=== PATIENT | female | born 1975 | race Caucasian/White ===

== ENCOUNTER 2019-12-05 16:34 | Emergency (ER) | payer OTHER ==
--- OUTSIDE RECORDS SUMMARY | 2019-12-05 16:46 | XMS REPORT | Continuity of Care Document ---
:1975 External Reference #:[id number] Author Name Ada Hamlin MD Address [address] [place] [address] Care Team Providers Name Role Phone Jonas Corona MD - Urology Care Team Information Honing Machine [employer] [phone] Problems Active Problems Provider Date Vitamin D deficiency Ada Hamlin MD Onset: 08/17/2013 Allergic rhinitis Arlet Richards PA Onset: 06/18/2011 Kidney stone Ada Hamlin MD Onset: 12/10/2018 Localized, primary osteoarthritis of the Ada Hamlin MD Onset: 2018 ankle and/or foot Migraine without aura, not refractory Ada Hamlin MD Onset: 12/10/2018 Social History Type Date Description Comments Sex Unknown Tobacco Use Start: Unknown Never Smoked Cigarettes ETOH Use Occasionally consumes alcohol Recreational Drug Use Denies Drug Use Tobacco Use Start: Unknown Patient has never smoked Smoking Status Reviewed: 12/10/18 Patient has never smoked Exercise Type/Frequency Exercises regularly Exercises regularly, walking, running (5k to 1/2 mar). 01/13/2014 counselled 150min per week, 10k steps per day ; 10/19/15 counselled; 11/28/16 counselled [facility]; 12/05/17 counselled [facility] Allergies, Adverse Reactions, Alerts Active Allergies Reaction Severity Comments Date Penicillin Hives 12/31/2014 Medications Active Medications SIG Qnty Indications Ordering Date Provider Fluticasone 1 inhalation twice 3units J45.40 Boubacar, 07/30/2019 Propionate/Salmetero daily, rinse mouth MD Ada l after use 55-14mcg/Act Aerosol Albuterol Sulfate 2 puffs every 4 8.500gm R06.02 Deepa Avalos, 2018 HFA hours as needed 108(90Base) mcg/Act Aerosol J45.40 Ibuprofen 200 4 by mouth po 3 M25.511 Ada Hamlin MD 05/28/2019 200mg times daily with Tablets food watch for stomach upset. Fluticasone 2 sprays to each 16gm J30.9 Ada Hamlin MD 12/10/2018 Propionate nostril daily 50mcg/Act Suspension Sumatriptan Succinate 1 by mouth with 30tabs G43.019 Ada Hamlin MD 12/05/2017 headache onset, 25mg Tablets may repeat every 2 hours up to 200mg total daily dose G43.009 Vitamin D (Cholecalciferol) 2 po daily with E55.9 Ada Hamlin MD 1000Unit main meal with Tablets meat fat oil Fish Oil 1 by mouth every Unknown 1000mg Capsules day Glucosamine Chondroitin 1500 1 tab PO every Unknown Complex day as needed 1500Com Capsules Zyrtec Allergy 1 by mouth every Unknown 10mg Tablets day History Medications Fluticasone 1 inhalations 1units J45.40 Boubacar, 07/28/2019 - Propionate/Salmeterol twice daily MD Ada 07/30/2019 113-14mcg/Act Aerosol Medications Administered in Office Medication SIG Qnty Indications Ordering Provider Date Torodol Injection 15 MG Dose Ada Hamlin MD 04/27/2016 Injection Immunizations CPT Code Status Date Vaccine Reaction Lot # [id number] Given 09/10/2019 Influenza Vac, Quadrivalent, Split, 0.25mL, Im Use 66462 Given 09/03/2019 Pneumococcal 23 Immunization Adult [id number] Or Immunosuppressed Patient Q2036 Given 08/14/2017 Flulaval Immunization [facility] 14578 Given 07/22/2017 Influenza Virus Vaccine,Quadrivalent,Split,Preserv Free, 0.5mL,Im [address] Given 07/23/2016 Influenza Virus Vaccine,Quadrivalent,Split,Preserv Free, 0.5mL,Im [address]896 Given 07/21/2015 Influenza Virus Vaccine,Quadrivalent,Split,Preserv Free, 0.5mL,Im 71910 Given 08/06/2014 Influenza Virus Vaccine,Quadrivalent,Split,Preserv Free, 0.5mL,Im 73879 Given 08/04/2013 Afluria Or Fluvirin Flu Vac Intramuscular 85865 Given 01/21/2012 Tdap (Adacel) Ages 7 And Above Only 04897 Given 10/15/2006 Afluria Or Fluvirin Flu Vac Intramuscular 19598 Given 10/15/2006 Afluria Or Fluvirin Flu Vac Intramuscular 02728 Refused 09/03/2019 Fluzone Highdose Age 65 And Over will get at pharmacy Preservative & Antibiotic Free Q2039 Refused 06/16/2019 Flu Vaccine NOS WILL GET IN FALL Q2039 Refused 07/02/2018 Flu Vaccine NOS Vital Signs Date Vital Result Comment 11/12/2019 10:25am Weight 178.00 lb Heart Rate 72 /min BP Systolic 116 mmHg BP Diastolic 80 mmHg Respiratory Rate 16 /min Height 65.5 inches 5'5.50" BMI (Body Mass Index) 29.2 kg/m2 09/03/2019 11:37am Weight 179.00 lb Heart Rate 61 /min BP Systolic 118 mmHg BP Diastolic 70 mmHg Respiratory Rate 16 /min Height 65.5 inches 5'5.50" O2 % BldC Oximetry 99 % ra BMI (Body Mass Index) 29.3 kg/m2 Results Test Acquired Date Facility Test Result H/L Range Note Laboratory test 06/16/2019 [facility] Microbiology res 1 finding Culture <SEE NOTE> 1 Microbiology results RESULT Normal throat curly.No beta hemolytic streptococci isolated. Procedures Date Code Description Status 11/12/2019 85687 Remove Skin Tags Up To 15 Completed 09/03/2019 71303 Measure Blood Oxygen Level Single Determination Completed 09/03/2019 77436 Spirometry /PFT With And Without Bronchodialator Completed (Bronchospasm) 07/31/2019 35828 Measure Blood Oxygen Level Single Determination Completed 07/28/2019 50409 Measure Blood Oxygen Level Single Determination Completed 07/28/2019 04419 Spirometry /PFT With And Without Bronchodialator Completed (Bronchospasm) 07/18/2019 00659 Measure Blood Oxygen Level Single Determination Completed 06/16/2019 98837 Measure Blood Oxygen Level Single Determination Completed 02/24/2018 89410550 Mammogram Completed Medical Devices Description No Information Available Encounters Type Date Location Provider Dx Diagnosis Office Visit 09/03/2019 [facility] Ada Hamlin, J45.20 Mild intermittent 11:15a asthma, uncomplicated Z23 Encounter for immunization Z68.29 Body mass index (BMI) 29.0-29.9, adult Office Visit 07/31/2019 3:45p [facility] Ada Hamlin MD J06.9 Acute upper respiratory infection, unspecified J45.20 Mild intermittent asthma, uncomplicated Z68.29 Body mass index (BMI) 29.0-29.9, adult Office Visit 07/28/2019 4:15p [facility] Ada Hamlin MD R06.02 Shortness of breath J45.20 Mild intermittent asthma, uncomplicated Z68.29 Body mass index (BMI) 29.0-29.9, adult Office Visit 07/18/2019 10:15a [facility] Deepa Avalos MD R06.02 Shortness of breath Z68.28 Body mass index (BMI) 28.0-28.9, adult Office Visit 06/16/2019 1:45p [facility] Ada Hamlin MD J06.9 Acute upper respiratory infection, unspecified Z68.29 Body mass index (BMI) 29.0-29.9, adult Office Visit 05/28/2019 11:30a [facility] Ada Hamlin MD M25.511 Pain in RIGHT shoulder M54.2 Cervicalgia G43.009 Migraine w/o aura, not intractable, w/o status migrainosus Z68.29 Body mass index (BMI) 29.0-29.9, adult Assessments Date Code Description Provider 11/12/2019 J45.40 Moderate persistent asthma, uncomplicated Ada Hamlin MD 11/12/2019 L91.8 Other hypertrophic disorders of the skin Ada Hamlin MD 11/12/2019 Z68.29 Body mass index (BMI) 29.0-29.9, adult Ada Hamlin MD 09/03/2019 J45.20 Mild intermittent asthma, uncomplicated Ada Hamlin MD 09/03/2019 Z23 Encounter for immunization Ada Hamlin MD 09/03/2019 Z68.29 Body mass index (BMI) 29.0-29.9, adult Ada Hamlin MD 07/31/2019 J06.9 Acute upper respiratory infection, Ada Hamlin MD unspecified 07/31/2019 J45.20 Mild intermittent asthma, uncomplicated Ada Hamlin MD 07/31/2019 Z68.29 Body mass index (BMI) 29.0-29.9, adult Ada Hamlin MD 07/28/2019 R06.02 Shortness of breath Ada Hamlin MD 07/28/2019 J45.20 Mild intermittent asthma, uncomplicated Ada Hamlin MD 07/28/2019 Z68.29 Body mass index (BMI) 29.0-29.9, adult Ada Hamlin MD 07/18/2019 R06.02 Shortness of breath Deepa Avalos MD 07/18/2019 Z68.28 Body mass index (BMI) 28.0-28.9, adult Deepa Avalos MD 06/16/2019 J06.9 Acute upper respiratory infection, Ada Hamlin MD unspecified 06/16/2019 Z68.29 Body mass index (BMI) 29.0-29.9, adult Ada Hamlin MD 06/16/2019 J06.9 Acute upper respiratory infection, [facility] unspecified 05/28/2019 M25.511 Pain in RIGHT shoulder Ada Hamlin MD 05/28/2019 M54.2 Cervicalgia Ada Hamlin MD 05/28/2019 G43.009 Migraine without aura, not intractable, Ada Hamlin MD without status migra 05/28/2019 Z68.29 Body mass index (BMI) 29.0-29.9, adult Ada Hamlin MD Plan of Treatment Future Appointment(s):12/24/2019 8:30 am - Ada Hamlin MD at [facility]2019 - Ada Hamlin MDJ45.40 Moderate persistent asthma, nodyzedjcyrsmB23.8 Other hypertrophic disorders of the skinZ68.29 Body mass index (BMI) 29.0-29.9, adultComments:Recommend regular exercise and reduced calorie diet for weight loss Cautioned risks for developing sleep apnea, arthritis, hypertension, premature cardiovascular disease, diabetes. Functional Status Description No Information Available Mental Status Description No Information Available Referrals Description No Information Available
[2019-12-05 16:56] VITALS: BP 111/67
--- NOTE | 2019-12-05 17:14 | UC ---
Throat Pain/Nasal Kojo HPI - HPI Summary HPI Summary: Pt presents with c/o sudden onset fever, chills, body aches, ST. X 1 day. Pt's was diagnosed with strep throat yesterday. - History of Current Complaint Chief Complaint: UCGeneralIllness Stated Complaint: SORE THROAT Time Seen by Provider: 12/05/19 16:55 Hx Obtained From: Patient Hx Last Menstrual Period: 12/05/19 ?: No Onset/Duration: Sudden Onset, Lasting Hours, Still Present Severity: Moderate Pain Intensity: 4 Cough: None Associated Signs & Symptoms: Positive: Dysphagia - Epiglottits Risk Factors Epiglottis Risk Factors: Sudden Onset - Allergies/Home Medications Allergies/Adverse Reactions: Allergies Allergy/AdvReac Type Severity Reaction Status Date / Time Penicillins Allergy Hives Verified 12/05/19 16:56 Home Medications: Home Medications Fluticasone-Salmeterol 100-50* [Advair Diskus 100-50*] 1 puff INH BID 12/05/19 [ History Confirmed 12/05/19] PMH/Surg Hx/FS Hx/Imm Hx Previously Healthy: Yes - Surgical History Surgical History: None - Family History Known Family History: Positive: Cardiac Disease - Social History Occupation: Employed Full-time Lives: With Family Alcohol Use: None Substance Use Type: None Smoking Status (MU): Never Smoked Tobacco Have You Smoked in the Last Year: No Review of Systems All Other Systems Reviewed And Are Negative: Yes Constitutional: Positive: Fever, Chills, Fatigue Skin: Positive: Negative Eyes: Positive: Negative ENT: Positive: Sore Throat Respiratory: Positive: Negative Cardiovascular: Positive: Negative Gastrointestinal: Positive: Negative Genitourinary: Positive: Negative Motor: Positive: Negative Neurovascular: Positive: Negative Musculoskeletal: Positive: Myalgia Neurological/Mental Status: Positive: Negative Psychological: Positive: Negative Is Patient Immunocompromised?: No Physical Exam Triage Information Reviewed: Yes Appearance: Ill-Appearing Vital Signs: Initial Vital Signs Temp 99.6 F 12/05/19 16:51 Pulse 59 12/05/19 16:51 Resp 14 12/05/19 16:51 BP 111/67 12/05/19 16:51 Pulse Ox 98 12/05/19 16:51 Vital Signs Reviewed: Yes Eye Exam: Normal ENT: Positive: Pharyngeal erythema, Tonsillar swelling Dental Exam: Normal Neck exam: Normal Respiratory Exam: Normal Cardiovascular Exam: Normal Musculoskeletal Exam: Normal Neurological Exam: Normal Psychological Exam: Normal Skin Exam: Normal Throat Pain/Nasal Course/Dx - Differential Dx/Diagnosis Differential Diagnosis/HQI/PQRI: Influenza, Pharyngitis, Tonsillitis Provider Diagnosis: Tonsillitis Discharge ED - Sign-Out/Discharge Documenting (check all that apply): Patient Departure All imaging exams completed and their final reports reviewed: No Studies - Discharge Plan Condition: Stable Disposition: HOME Prescriptions: Azithromycin TAB* [Zithromax TAB (Z-ALEJANDRO) 250 mg #6 tabs] 2 tab PO .TODAY, THEN 1 DAILY #1 [email or web address] Patient Education Materials: Tonsillitis (ED) Referrals: Ada Hamlin MD [Primary Care Provider] - If Needed - Billing Disposition and Condition Condition: STABLE Disposition: Home
== END 2019-12-05 17:24 | disposition home or self-care (01) ==
LOC: UCCORT 16:34
DX: J03.90 Acute tonsillitis, unspecified (principal); R53.83 Other fatigue; M79.10 Myalgia, unspecified site; Z88.0 Allergy status to penicillin
CPT/HCPCS: 87651; 99202; G0463